=== PATIENT | female | born 1945 | race Caucasian/White ===

== ENCOUNTER → 2020-07-06 14:53 | Outpatient (CLI) | payer OTHER, SELFPAY ==
--- NOTE | ~2020-07-06 | XR_ITS ---
EXAMINATION: XR lumbar spine min 4V DATE: 07/06/2020 15:25 INDICATION: Low back pain. Lumbar radiculitis. Left leg pain. TECHNIQUE: 5 views of lumbar spine were obtained. COMPARISON: None. FINDINGS: Bone alignment is normal. Vertebral body heights are normal. There is mildly decreased disc height at T12-L1, moderately decreased disc height at L2-L3, and mildly decreased disc height from L 3-L4 through L5-S1. There are endplate osteophytes at all levels. There is multilevel severe facet kj int osteoarthritis. IMPRESSION: 1. Moderate lumbar spondylosis. Reviewed, dictated and finalized at location B.
== END ==
DX: M47.26 Other spondylosis with radiculopathy, lumbar region (principal)
CPT/HCPCS: 72110

== ENCOUNTER 2020-08-28 19:20 | Emergency (ER) | payer OTHER, SELFPAY ==
--- NOTE | 2020-08-28 20:21 | PC.NURSE ---
Pt decided to not be seen at this time due to not having any Covid symptoms.
== END 2020-08-28 20:21 | disposition left against medical advice (07) ==
PROVIDERS: Emergency Provider Emergency Medicine; PCP Internal Medicine
DX: Z53.21 Procedure and treatment not carried out due to patient leaving prior to being seen by health care provider (principal)
CPT/HCPCS: 99199

== ENCOUNTER 2021-05-05 12:49 | Emergency (ER) | payer OTHER, MEDICARE, SELFPAY ==
[2021-05-05 13:02] VITALS: BP 158/103; PULSE 90; RESP 16; TEMP 36.7; O2SAT 99
--- NOTE | 2021-05-05 13:22 | ED.URI ---
HPI - URI/Sore Throat General Chief Complaint: Upper Respiratory Infection Stated Complaint: URI Time Seen by Provider: 05/05/21 13:10 Source: patient and RN notes reviewed Mode of arrival: ambulatory Limitations: no limitations History of Present Illness HPI Narrative: Patient presents today complaining of rhinorrhea, nasal congestion and pressure, cough, feeling feverish , and eye itching. Symptoms began yesterday. Denies fever, chills, body aches, shortness of breath. No history of asthma or COPD. She took 1 dose of Zyrtec without relief. 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 MD elicited complaint: cough, rhinorrhea, nasal congestion and sinus pain Related Data Home Medications Medication Instructions Recorded Confirmed meloxicam 15 mg PO DAILY 05/05/21 05/05/21 Allergies Allergy/AdvReac Type Severity Reaction Status Date / Time NKDA Allergy Unknown Other Uncoded 05/05/21 13:09 Review of Systems Review of Systems: CONSTITUTIONAL: Denies body aches, chills, or sweats.+ Feverish EYES: Denies visual changes, redness, or discharge.+ Eye itching ENT: Denies sore throat, or otalgia.+ Rhinorrhea, congestion, sinus pressure CARDIOVASCULAR: Denies chest pain, palpitations, or edema. RESPIRATORY: Denies dyspnea.+ Cough GASTROINTESTINAL: Denies abdominal pain, nausea, vomiting, or diarrhea. GENITOURINARY: Denies dysuria or hematuria. SKIN: Denies rash, itching, or wounds. MUSCULOSKELETAL: Denies back pain, joint pain, or myalgia. NEUROLOGIC: Denies headache, numbness, tingling, or weakness. PSYCH: Denies depression or anxiety. Exam Narrative: GENERAL: Well-appearing, well-nourished, and in no acute distress. HEAD: Normocephalic, atraumatic. EYES: EOMI. No redness or drainage. Conjunctivae normal. ENT: Mucous membranes pink and moist. Nares clear. + rhinorrhea. TMs normal bilaterally. Throat normal with moderate amount of white postnasal drainage. Bilateral nasal turbinates are slightly erythematous and edematous with clear drainage. Uvula midline. NECK: Normal AROM. Supple. No lymphadenopathy. CHEST: No respiratory distress. Clear to auscultation. HEART: Regular rate and rhythm. No murmur appreciated. Normal peripheral pulses. EXTREMITIES: Normal range of motion. No edema. SKIN: Warm, dry, no rash. Capillary refill normal. Normal skin turgor. NEURO: No focal deficits. Alert and oriented x3. Gait steady. PSYCH: Normal affect. No signs of depression or anxiety. Course Course Level of Care: Express Care Visit Vital Signs Vital signs: Vital Signs Temperature 98.1 F 05/05/21 13:02 Pulse Rate 90 05/05/21 13:02 Respiratory Rate 16 05/05/21 13:02 Blood Pressure 158/103 H 05/05/21 13:02 Pulse Oximetry 99 05/05/21 13:02 Temperature 98.1 F 05/05/21 13:02 Pulse Rate 90 05/05/21 13:02 Respiratory Rate 16 05/05/21 13:02 Blood Pressure 158/103 H 05/05/21 13:02 Pulse Oximetry 99 05/05/21 13:02 Reviewed. Pt has been instructed to follow up with her PCP regarding her elevated blood pressure today. MDM - URI/Sore Throat Differential Diagnosis Differential diagnosis: Likely upper respiratory infection, sinusitis and viral infection Critical Care Time Critical Care Time Critical Care Time: No Discharge Plan Discharge Clinical Impression: Upper respiratory infection Qualifiers: URI type: unspecified URI Qualified Code(s): J06.9 - Acute upper respiratory infection, unspecified Patient Disposition: Home, Self-Care Condition: Stable Instructions: Upper Respiratory Infection (DC) Additional Instructions: Your symptoms are likely due to a viral illness, which is not treated with antibiotics. Virus symptoms can last for up to 10-14 days. Take Tylenol or ibuprofen for pain or fever, if able. Consider a decongestant such as Sudafed or Coricidin HBP, or combination medication such as DayQuil. Rest and stay hydrated. Follow up with your PCP in 7
== END 2021-05-05 13:35 | disposition home or self-care (01) ==
PROVIDERS: Emergency Provider Nurse Practitioner; PCP Internal Medicine
DX: J06.9 Acute upper respiratory infection, unspecified (principal)
CPT/HCPCS: 99211; G0463

== ENCOUNTER 2021-05-23 08:35 | Outpatient (CLI) | payer OTHER, MEDICARE, SELFPAY ==
--- NOTE | ~2021-05-23 | MM_ITS ---
EXAMINATION: MM screening [facility] BI w piero HISTORY: Screening mammogram TECHNIQUE: Craniocaudal and mediolateral oblique 3-D tomosynthesis images were obtained and synthetic 2-D images were generated. CAD analysis was submitted and interpreted. COMPARISON: 07/07/2018, 08/21/2011 BREAST PARENCHYMAL COMPOSITION: There are scattered areas of fibroglandular density. FINDINGS: There is no suspicious mass, calcification, or architectural distortion to suggest malignan cy in either breast. There has been no suspicious interval change. IMPRESSION: 1. No mammographic evidence of malignancy. 2. Recommend routine screening mammography in one year. BI-RADS Category 1: Negative Reviewed, dictated and finalized at location A.
== END 2021-05-23 08:36 | disposition home or self-care (01) ==
PROVIDERS: PCP Internal Medicine; Visit Provider Internal Medicine
DX: Z12.31 Encounter for screening mammogram for malignant neoplasm of breast (principal)
CPT/HCPCS: 77063; 77067

== ENCOUNTER 2023-05-26 13:24 | Outpatient (CLI) | payer MEDICARE, SELFPAY ==
--- NOTE | ~2023-05-26 | XR_ITS ---
XR lumbar spine 2-3V DATE: 05/26/2023 13:50 INDICATION: Back pain TECHNIQUE: AP, lateral, coned lateral lumbosacral views COMPARISON: 07/06/2020 lumbar spine is not available from the archive due to PACS issues at this time. FINDINGS: There is diffuse osteopenia. Included lower thoracic and lumbar pedicles are intact. No fracture or bone destruction is evident. The lumbar and included lower thoracic pedicles are intac t. There is multilevel degenerative disc disease, moderate at L1-2, L2-3, L3-4, mild at L4-5 and L5-S1. There is degenerative change at the apophyseal joints of the mid and lower lumbar spine, with minimal associated anterolisthesis at L3-4. The sacroiliac joints are intact. IMPRESSION: Moderate lumbar spondylosis Osteopenia Reviewed, dictated and finalized at location B.
--- NOTE | ~2023-05-26 | XR_ITS ---
XR thoracic spine 3V DATE: 05/26/2023 13:50 INDICATION: Back pain TECHNIQUE: AP, lateral, swimmer views COMPARISON: None FINDINGS: Osteopenia. No fracture or dislocation or bone destruction. The thoracic pedicles are intact. There is mild to mo derate degenerative spurring of the thoracic spine. There is mild thoracolumbar dextroscoliosis. No paraspinal soft tissue thickening. IMPRESSION: Thoracolumbar dextroscoliosis Osteopenia Mild to moderate spurring Reviewed, dictated and finalized at location B.
== END 2023-05-26 13:25 ==
LOC: MICIMG 13:27
PROVIDERS: PCP Internal Medicine; Visit Provider Internal Medicine
DX: M47.896 Other spondylosis, lumbar region (principal); M85.88 Other specified disorders of bone density and structure, other site
CPT/HCPCS: 72072; 72100

== ENCOUNTER 2024-01-29 10:13 | Outpatient (CLI) | payer MEDICARE, SELFPAY ==
--- NOTE | ~2024-01-29 | MMUS_ITS ---
EXAMINATION: MM diagnostic [facility] BI w piero, US breast RT limited HISTORY: Right lateral breast pain TECHNIQUE: Additional 3-D tomosynthesis images of the right breast were performed and synthetic 2-D i mages were generated. CAD analysis was submitted and interpreted. High resolution Limited right breas t ultrasound was performed. COMPARISON: Comparison to multiple prior studies sequentially, with oldest reviewed study dated 07/07. BREAST PARENCHYMAL COMPOSITION: Not dense: There are scattered areas of fibroglandular density. FINDINGS: MAMMOGRAPHIC FINDINGS: There are no suspicious masses, calcifications or architectural distortion in either breast to sugges t malignancy. The breasts are stable. ULTRASOUND: Limited right breast ultrasound: At 10:00, 8 cm from the nipple there is an oval hypoechoic 4 mm mass with parallel orientation, no posterior features and no internal vascularity. There is a horizontall y oriented echogenic line internally. No other masses. IMPRESSION: 1. Probable benign right breast mass at 10:00, 8 cm from the nipple measuring 4 mm. 2. Recommend 6 month follow-up Limited right breast ultrasound BI-RADS category 3, probably benign findings. Reviewed, dictated and finalized at location B. IC RELATIONS INTERN IMPRESSION: 1. Probable benign right breast mass at 10:00, 8 cm from the nipple measuring 4 mm. 2. Recommend 6 month follow-up Limited right breast ultrasound BI-RADS category 3, probably benign findings.
== END 2024-01-29 10:14 | disposition home or self-care (01) ==
PROVIDERS: PCP Internal Medicine; Visit Provider Internal Medicine
DX: N64.4 Mastodynia (principal); R92.8 Other abnormal and inconclusive findings on diagnostic imaging of breast
CPT/HCPCS: 76642; 77062; 77066; G0279

== ENCOUNTER 2024-04-13 12:00 | Outpatient (CLI) | payer MEDICARE, SELFPAY ==
--- NOTE | ~2024-04-13 | XR_ITS ---
EXAMINATION: XR chest 2V DATE: 04/13/2024 12:28 INDICATION: Dyspnea TECHNIQUE: PA and lateral views of the chest were obtained. COMPARISON: None FINDINGS: Mild linear discoid atelectasis at the left lung base. Mild eventration along the anterior right taj diaphragm. No other airspace opacities, pulmonary edema, pleural effusion or pneumothorax. The cardio mediastinal silhouette is normal. Moderate thoracic spondylosis. IMPRESSION: 1. Mild left basilar discoid atelectasis. No other acute cardiopulmonary disease. Reviewed, dictated and finalized at location A. 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 Mild left basilar discoid atelectasis. No other acute cardiopulmonary diseas e.
== END 2024-04-13 12:01 | disposition home or self-care (01) ==
PROVIDERS: PCP Internal Medicine; Visit Provider Internal Medicine
DX: R06.00 Dyspnea, unspecified (principal); J98.11 Atelectasis
CPT/HCPCS: 71046

== ENCOUNTER 2024-04-22 14:59 | Outpatient (CLI) | payer MEDICARE, SELFPAY | END 2024-04-22 15:00 | disposition home or self-care (01) | PROVIDERS: PCP Internal Medicine; Visit Provider Internal Medicine | DX: M85.89 Other specified disorders of bone density and structure, multiple sites (principal); Z13.820 Encounter for screening for osteoporosis | CPT/HCPCS: 77080 ==

== ENCOUNTER 2024-08-02 10:16 | Outpatient (CLI) | payer MEDICARE, SELFPAY ==
--- NOTE | ~2024-08-02 | US_ITS ---
US breast RT limited 08/02/2024 10:41 Indication: Follow-up right breast mass Procedure: Limited ultrasound of the right breast Comparison: 01/29/2024 Findings: At 10:00, 8 cm from the nipple there is an oval hypoechoic 4 x 3 x 3 mm mass with internal septations, no internal vascularity and no significant posterior features. This mass is stable compar ed with prior study. Impression: 1: Stable likely benign right breast mass at 10:00, 8 cm from the nipple measuring 4 mm. BI-RADS CATEGORY 3-PROBABLY BENIGN FINDING RECOMMENDATION: Six-month follow-up diagnostic bilateral mammogram and Limited right breast ultrasoun d recommended. Reviewed, dictated and finalized at location B. Impression: 1: Stable likely benign right breast mass at 10:00, 8 cm from the nipple measur ing 4 mm. BI-RADS CATEGORY 3-PROBABLY BENIGN FINDING RECOMMENDATION: Six-month follow-up diagnostic bilateral mammogram and Limited right breast ultrasound recommended.
--- OUTSIDE RECORDS SUMMARY | 2024-08-02 11:28 | XMS_ITS | Clinical Summary ---
Author Organization [facility] Address [address] [place] [address] Care Team Providers Care Roll Operator Name Role Phone Jhony Tang MD Unavailable Gustavo Hester MD Primary Care Provider [phone] Source Comments [facility],non-owned Affiliates and Associated Physician Practices is amultiple site organization consisting of ambulatory clinics and hospital sitesin [place], [place], [place] and [place]. This disclosure is being madepursuant to the Care Everywhere program and may not contain all information available regarding this patient. Last updated 17.[facility] Allergies No known active allergies Medications * Be aware that medications may not be up to date on this document. Alwaysverify current medications with the patient. vitamin D, ergocalciferol, (DRISDOL) 24583 UNITS capsule 8 Active benzonatate (TESSALON) 100 MG capsule benzonatate 100 mg capsule Active naproxen (NAPROSYN) 375 MG tablet naproxen 375 mg tablet TAKE ONE TABLET BY MOUTH TWICE DAILY Active meloxicam (MOBIC) 15 MG tabletIndicatio ns:Presence of left artificial knee joint,Chronic pain of left knee Take 1 tablet by mouth once daily 30 tablet 5 2 Active Active Problems Problem Noted Date Diagnosed Date Status post left knee replacement 07/17/2017 Primary osteoarthritis of right knee 07/15/2017 Immunizations Immunization Administration Dates Next Due PNEUMOCOCCAL PPSV23 10/10/2013 Social History Tobacco Use Types Packs/Day Years Used Date Smoking Tobacco: Never Smokeless Tobacco: Never Alcohol Use Standard Drinks/Week Comments No 0 (1 standard drink = 0.6 oz pur e alcohol) Comments No Sex and Gender Information Value Date Recorded Sex Assigned at Not on file Legal Sex Female 11:11 AM CDT Gender Identity Not on file Sexual Orientation Not on file Last Filed Vital Signs Vital Sign Reading Time Taken Comments Blood Pressure 196/95 06/27/2020 10:44 AM CDT Pulse 72 06/27/2020 10:44 AM CDT Temperature 36.8 C (98.3 F) 10/10/2013 7:19 AM CDT Respiratory Rate 16 10/10/2013 7:19 AM CDT Oxygen Saturation 94% 10/10/2013 7:19 AM CDT Inhaled Oxygen Concentration - - Weight 72.6 kg (160 lb) 06/27/2020 10:44 AM CDT Height 142.2 cm (4' 8) 06/27/2020 10:44 AM CDT Body Mass Index 35.87 06/27/2020 10:44 AM CDT Plan of Treatment Health Maintenance Due Date Last Done Comments BONE DENSITY TESTING 1945 MEDICARE AWV 12 MONTHS 1945 HEPATITIS C SCREENING 09/15/1965 DTAP/TDAP/TD VACCINES (1 - Tdap) 09/19/1966 ZOSTER VACCINE (1 of 2) 09/19/1997 PNEUMOCOCCAL VACCINE 50+ (2 of 2 - PCV) 10/10/2014 10/10/2013 Respiratory Syncytial Virus (RSV) Vaccine Pt: or over 60 yrs (1 - 1-dose 75+ series) 09/19/2022 COVID-19 VACCINE ( - 2023-2 5 season) 2023 DEPRESSION SCREENING 02/25/2024 INFLUENZA VACCINE (Season Ended) 2024 HEPATITIS B VACCINE Aged Out No longe r eligible based on patient's age to complete this topic HIB VACCINE Aged Out No longer eligi ble based on patient's age to complete this topic HPV VACCINE Aged Out No longer eligi ble based on patient's age to complete this topic MENINGOCOCCAL (Group B) VACC INE SHARED DECISION-MAKING Aged Out No longer eligibl e based on patient's age to complete this topic MENINGOCOCCAL GROUPS A/C/Y/W VACCINE Aged Out No longer eligible b ased on patient's age to complete this topic Medical Devices Implanted Type Area Transition Mgr Rn Device Identifier Shelf Expiration Date Model / Serial / Lot Frankie Bone [place] Hv Implanted:Qty: 1 on 10/07/2013 by Jhony Tang MD at [facility] Left: [employer] 06/24/2015 [id number] / / [id number] Ty Tibial I Beam Fix Bar 67mm Implanted:Qty: 1 on 10/07/2013 by Jhony Tang MD at [facility] Left: [employer] 07/24/2023 [id number] / / [id number] Butn Pat Arcom Wire Polyeth Xsm 28 X 8 Implanted:Qty: 1 on 10/07/2013 by Jhony Tang MD at [facility] Left: [employer] 07/23/2018 [id number] / / [id number] Ins Kn Vangurd Fem Cocr L-Intlok 60.0mm Implanted:Qty: 1 on 10/07/2013 by Jhony Tang MD at [facility] Left: [employer] 07/24/2023 [id number] / / [id number] Vangrd Ant Stblzd Brg 12mm X 67mm Implanted:Qty: 1 on 10/07/2013 by Jhony Tang MD at [facility] Left: [employer] 05/23/2018 [id number] / / [id number] Insurance MEDICARE Member Subscriber Plan / Payer (Ef fective 2013-Present) Name:Piedad Jane Member ID:[id number] Relation to Subscriber:Self Name:Piedad Jane Subscriber ID:[id number] Payer ID:Not on file Group ID:Not on file Type:Medicare Address: [place] [id number] [employer] Advance Directives * Full Code (Latest Code Status on File) Date Activated Date Inactivated Comments 10/07/2013 2:57 PM 10/10/2013 1:20 PM Care Teams Roll Operator Relationship Specialty Start Date End Date Gustavo Hester MD [facility] [address] [place] [id number] PCP - General Internal Medicine 08/31/13 [place] [id number] [address] [place] [address] Orthopedic Surgery 08/31/13
--- OUTSIDE RECORDS SUMMARY | 2024-08-02 11:28 | XMS_ITS | Data Portability ---
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 Differential diagnosis always includes the possibility of low-grade occult infection. My suspicion for infection is low in this case is usually there would be a more prominent effusion that could be palpated. We will obtain a sedimentation rate and a C-reactive protein and if either is abnormal will aspirate the knee for culture and cell count analysis. This was explained to the patient. 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 This puts additional stress on the extensor mechanism. She has been using a cane in the right hand instinctively min I think this is to compensate impart for this significant weakness in her left hip abductor mechanism which is likely due to chronic degenerative tearing. She also has some weakness in abduction of the right hip but not to the same degree. I would recommend that she work on weight loss. She asked about some of the new medications which are tolerated to help with weight loss and she is going to discuss that with Dr. Hester. I would recommend a course of physical therapy and see if we can strengthen her weak abductor musculature in both hips. She will continue using a cane in the right hand. I will see her back in 1 month to assess her progress. If her blood work is abnormal we will invite her in for aspiration of the left knee to rule out infection. To try to address the inflammation, I have discussed her the option of trying meloxicam 15 mg daily. I explained the possible side effects. She denies any history of peptic ulcer disease kidney problems or liver problems. I have given her instructions she described possible side effects of anti-inflammator y medication use. I warned her that she must and take ibuprofen or Aleve in addition to the meloxicam. 45 minutes were spent in total care this patient more than half the time spent in [id number] care. Addendum: 09/07/2022: C-reactive protein was 0.4 and sedimentation rate was 8 both within normal limits arguing against infection. I called the patient this morning And let her know [email or web address] Not available 09/07/2022 09:31:38 Plan of Treatment Reminders Order Date Submit Date Provider Last Modified By Organization Details Last Modified Time Details Appointments None recorded. Lab CBC w/ auto diff 2024 025 [email or web address] [facility], [address] [place], [address], 5 17:21:52 CMP, serum or plasma 2024 025 [facility], [address] [place], [address], 5 17:21:52 T4, free, serum 2024 025 [email or web address] [facility], [address] [place], [address], 5 17:21:52 TSH, serum or plasma 2024 025 [email or web address] [facility], [address] [place], [address], 5 17:21:53 vitamin D, 25-hydroxy, total, serum 2024 025 [email or web address] [facility], [address] [place], [address], 5 17:21:53 vitamin D, 25-hydroxy, total, serum 2023 024 [facility], [address] [place], [address], 4 08:35:18 HbA1c (hemoglobin A1c), blood 2023 024 [facility], [address] [place], [address], 4 08:35:19 TSH, serum or plasma 2023 024 [facility], [address] [place], [address], 4 08:35:17 T4, free, serum 2023 024 [facility], [address] [place], [address], 4 08:35:16 CBC w/ auto diff 2023 024 [facility], [address] [place], [address], 4 08:35:15 lipid panel, serum 2023 024 [facility], [address] [place], [address], 4 08:35:13 CMP, serum or plasma 2023 024 [facility], [address] [place], [address], 4 08:35:14 Referral None recorded. Procedures None recorded. Surgeries None recorded. Imaging XR, knee 2022 023 [email or web address] [facility], [address] [facility], [place], [address], 3 12:30:08 XR, hip + pelvis, unilateral 2022 023 [facility], [facility] [facility], [place], [address], 3 13:41:27 Medication Orders benzonatate 200 mg capsule 2024 025 [id number], [address] [facility], [place], [address], 5 11:53:40 Patient TargetsNo targets recorded. Patient Instructions Encounter Date Encounter Id Patient Instructions Last Modified By Organization Details Last Modified Time 01/22/2023 [id number] Will continue on current medications of meloxicam 15 mg once daily instructed take Tylenol of East 500 mg two q.8 hours for pain. Will obtain x-rays of the lumbar thoracic spine. Continue on current Rx pending those results. Is in need of Cologuard test Portions of the record may have been created with voice recognition software. Occasional wrong-word or s ound-a-like substitutions may have occurred due to the inherent limitations of voice recognition software. Read the chart carefully and recognize, using context, where substitutions have occurred. Cologuard x-rays of the thoracic and lumbar spine Next Appt: 6 Months Approximate Date: 07/21/2023 [email or web address] Not available 01/22/2023 16:41:41 05/21/2023 [id number] Follow-up for degenerative joint disease as well as obesity class three. Both clinically stable. Will continue on current Rx and follow-up in six months. Will check blood work consisting of CBC, CMP, lipid, thyroid, vitamin-D level. Also needs a mammogram and Cologuard test. Mammogram Cologuard Next Appt: 6 Months Approximate Date: 11/17/2023 Portions of the record may have been created with voice recognition software. Occasional wrong-word or s ound-a-like substitutions may have occurred due to the inherent limitations of voice recognition software. Read the chart carefully and recognize, using context, where substitutions have occurred. [email or web address] Not available 05/21/2023 15:21:14 11/19/2023 [id number] dementia rating scale-2* [email or web address] Not available 11/19/2023 15:34:21 alcohol misuse* [email or web address] Not available 11/19/2023 15:34:21 depression screening* [email or web address] Not available 11/19/2023 15:34:21 Timed Up and Go test (TUG)* [email or web address] Not available 11/19/2023 15:34:21 multi-dimensiona l health assessment questionnaire* Not available 11/19/2023 15:34:21 Personalized a lt Plan and Screening Recommendations Advance Directives - Do you have one? No You have indicated that you are capable of preparing your advance care directive I recommend consulting with an Vp Strategic Planning, family member, or friend to assist you. not interested at this time Advance Directives - Do we have your advance directive on file in your health record? Primary Prevention/Interven tion (prevents or decreases the chance of common diseases from occurring) Smoking Risk: Non Smoker Alcohol Misuse Screening: Negative Weight: Overweight try to lose 10% of your body weight Physical activity: Need more exercise/physical activity Nutrition: Average Refer to attached handout Heart-Healthy Diet: After Your Visit Refer to attached handout DASH Diet: After Your Visit Recommend consultation with a diamond die driller Eat heart healthy diet Fall Risk (screened today): Intermediate Recommend regular use of cane or walker Vaccines Pneumococcal: No further needed Influenza: Your next one in the fall of this year Chronic Disease Risks Stroke: Low Risk I have no recommendations Heart Attack: Intermediate Risk I have no recommendations Clogging of the Arteries: Low risk I have no recommendations Diabetes: Low Risk I have no recommendations Secondary Prevention/Interven tion (detects treatable diseases before they may cause symptoms, disability, or ) Breast Cancer Screening with mammogram: Recommended today Cervical/Uterine/Ov prakash Cancer Screening: No screening necessary Osteoporosis Screening: Recommended today Date Screening Last Performed: Colon Cancer Screening: Cologuard (DNA stool test) Recommended Date Screening Last Performed: Eye Disease Screening: Ordered Recommended today Recommended today, but you have declined No Eye exam necessary Your next exam in: goes every 2 yrs Dementia Risk: Low I have no recommendations Depression Screening: Negative Recommend additional evaluation and/or treatment as noted above Recommend follow appointment to further evaluate Recommend Behavioral Health referral Active diagnosis, Continue current treatment plan I have no recommendations Not available 11/19/2023 15:20:58 Medicare wellnes s evaluation risk assessment stable. Follow-up for history of osteoporosis as well as degenerative arthritis and obesity class three. All clinically stable. Had blood work performed back in May which looked excellent. See no reason for further evaluation at this time. Will continue on current medications. Does need a bone density scan, mammogram and colonoscopy. Follow-up in six months. Additional Orders - Directives - Recommendations 1. DEXA Scan 2. Mammogram 2. Colonoscopy 3. Mammogram Follow Up: 6 Months Approximate Date: 05/17/2024 Portions of the record may have been created with voice recognition software. Occasional wrong-word or s ound-a-like substitutions may have occurred due to the inherent limitations of voice recognition software. Read the chart carefully and recognize, using context, where substitutions have occurred. [email or web address] Not available 11/19/2023 15:33:57 04/07/2024 [id number] Follow-up chroni c cough, chronic back pain secondary to degenerative joint disease. Osteoarthritis of the spine. History of some very mild osteopenia. Will check a bone density scan as well as a Cologuard test. Check a CBC, CMP thyroid and vitamin-D level Will continue on current Rx follow-up in six months Additional Orders - Directives - Recommendations 1. bone density scan 2. Cologuard 3 get copy of the mammogram done up at [facility] Get the bone density scan done up at [facility] Follow Up: 6 Months Approximate Date: 10/04/2024 Portions of record are template driven. When necessary additional context will be provided. Additionally some portions have been created with voice recognition software. Occasional wrong-word or s ound-a-like substitutions may have occurred due to the inherent limitations of voice recognition software. Read the chart carefully and recognize, using context, where substitutions may have occurred. Created: Chao Hester M.D. 04.07.2024 10:53 AM Not available 04/07/2024 11:53:14 Reason for Referral None Reported. Results Created Date Observation Date Name Description Value Unit Range Abnormal Flag Note LastModifiedBy Organization Detail LastModifiedTime 04/07/1904/07/2024 COLOG UARD cologuard result Cancel led - Duplic ate Order not applic able Not Available [facility] (Cologuard Orders Only) [address], [place], [address], 04/07/2024 17:13:23 11/24/19 24 11/24/2023 COLOG UARD cologuard result Cancel led - Duplic ate Order not applic able Not Available [facility] (Cologuard Orders Only) [address], [place], [address], 11/24/2023 11:22:06 05/21/19 24 05/21/2023 COLOG UARD cologuard result Cancel led - Duplic ate Order not applic able Not Available [facility] (Cologuard Orders Only) [address], [place], [address], 05/21/2023 15:43:56 09/04/19 23 09/03/2022 SEDIM ENTAT ION RATE erythrocyte sedimentatio n rate 8 mm/HR 0-20 Not Available [facility] (Lab) [address] [place], [address], 09/03/2022 12:11:43 09/04/19 23 09/03/2022 C REACT TEAGAN PROTE IN,UL TRA SENS C-reactive protein 0.43 mg/dL 0.0-0. 5 Not Available [facility] (Lab) [address] [place], [address], 09/03/2022 13:13:11 05/26/19 24 05/27/2023 LIPID PANEL , STAND VINCE cholesterol, total 206 mg/dL <200 high Not Available [facility] [id number] [place] [address], [address], 05/27/2023 08:35:13 05/26/19 24 05/27/2023 LIPID PANEL , STAND VINCE HDL cholesterol 63 mg/dL > or = 50 normal Not Available [facility] [id number] [place], [place] [address] [place], [address], 05/27/2023 08:35:13 05/26/19 24 05/27/2023 LIPID PANEL , STAND VINCE triglyceride s 97 mg/dL <150 normal Not Available [facility] [address] [place], [address], 05/27/2023 08:35:13 05/26/19 24 05/27/2023 LIPID PANEL , STAND VINCE LDL-choleste rol 123 mg/dL _(beba c) high Refer ence range : <100 Saundra able range <100 mg/dL for prima ry preve ntion ; <70 mg/dL for patie nts with CHD or diabe tic patie nts with > or = 2 CHD risk facto rs. LDL-C is now calcu lated using the Taniya n-Hop kins calcu oswaldo n, which is a valid ated novel amyo d godwini uri dae r accur acy than the Fried halima equat ion in the estim ation of LDL-C . Taniya baum SS et al. RED. 2013; 310(1 9): 2061- 2068 (http ://ed ucati on.Qu estProvident Link. com/f aq/FA Q164) Not Available [facility] [id number] [place] [address], [place], [address], 05/27/2023 08:35:13 05/26/19 24 05/27/2023 LIPID PANEL , STAND VINCE chol/HDLC ratio 3.3 (calc ) <5.0 normal Not Available [facility] [address] [place], [address], 05/27/2023 08:35:13 05/26/19 24 05/27/2023 LIPID PANEL , STAND VINCE non HDL cholesterol 143 mg/dL _(beba c) <130 high For patie nts with diabe vikram plus 1 major ASCVD risk facto r, treat ing to a non-H DL-C goal of <100 mg/dL (LDL- C of <70 mg/dL ) is consi dered a thera peuti c optio n. Not Available [address], [address], 05/27/2023 08:35:13 05/26/19 24 05/27/2023 COMPR EHENS TEAGAN METAB OLIC PANEL glucose 88 mg/dL 65-99 normal Fasti ng refer ence inter latia Not Available [address], [address], 05/27/2023 08:35:14 05/26/19 24 05/27/2023 COMPR EHENS TEAGAN METAB OLIC PANEL urea nitrogen (BUN) 14 mg/dL 7-25 normal Not Available [address], [address], 05/27/2023 08:35:14 05/26/19 24 05/27/2023 COMPR EHENS TEAGAN METAB OLIC PANEL creatinine 0.71 mg/dL 0.60-1 .00 normal Not Available [address], [address], 05/27/2023 08:35:14 05/26/19 24 05/27/2023 COMPR EHENS TEAGAN METAB OLIC PANEL eGFR 89 mL/mi n/1.7 3m2 > or = 60 normal Not Available [address], [address], 05/27/2023 08:35:14 05/26/19 24 05/27/2023 COMPR EHENS TEAGAN METAB OLIC PANEL BUN/creatini ne ratio SEE NOTE: (calc ) 6-22 Not Repor leonor: BUN and Creat inine are withi n refer ence range . Not Available [address], [address], 05/27/2023 08:35:14 05/26/19 24 05/27/2023 COMPR EHENS TEAGAN METAB OLIC PANEL sodium 140 mmol/ L 135-14 6 normal Not Available [address], [address], 05/27/2023 08:35:14 05/26/19 24 05/27/2023 COMPR EHENS TEAGAN METAB OLIC PANEL potassium 4.3 mmol/ L 3.5-5. 3 normal Not Available [address], [address], 05/27/2023 08:35:14 05/26/19 24 05/27/2023 COMPR EHENS TEAGAN METAB OLIC PANEL chloride 106 mmol/ L 98-110 normal Not Available [address], [address], 05/27/2023 08:35:14 05/26/19 24 05/27/2023 COMPR EHENS TEAGAN METAB OLIC PANEL carbon dioxide 28 mmol/ L 20-32 normal Not Available [address], [address], 05/27/2023 08:35:14 05/26/19 24 05/27/2023 COMPR EHENS TEAGAN METAB OLIC PANEL calcium 9.1 mg/dL 8.6-10 .4 normal Not Available [address], [address], 05/27/2023 08:35:14 05/26/19 24 05/27/2023 COMPR EHENS TEAGAN METAB OLIC PANEL protein, total 6.8 g/dL 6.1-8. 1 normal Not Available [address], [address], 05/27/2023 08:35:14 05/26/19 24 05/27/2023 COMPR EHENS TEAGAN METAB OLIC PANEL albumin 4.2 g/dL 3.6-5. 1 normal Not Available [address], [address], 05/27/2023 08:35:14 05/26/19 24 05/27/2023 COMPR EHENS TEAGAN METAB OLIC PANEL globulin 2.6 g/dL_ (calc ) 1.9-3. 7 normal Not Available [address], [address], 05/27/2023 08:35:14 05/26/19 24 05/27/2023 COMPR EHENS TEAGAN METAB OLIC PANEL albumin/glob ulin ratio 1.6 (calc ) 1.0-2. 5 normal Not Available [address], [address], 05/27/2023 08:35:14 05/26/19 24 05/27/2023 COMPR EHENS TEAGAN METAB OLIC PANEL bilirubin, total 0.7 mg/dL 0.2-1. 2 normal Not Available [address], [address], 05/27/2023 08:35:14 05/26/19 24 05/27/2023 COMPR EHENS TEAGAN METAB OLIC PANEL alkaline phosphatase 64 U/L 37-153 normal Not Available [address], [address], 05/27/2023 08:35:14 05/26/19 24 05/27/2023 COMPR EHENS TEAGAN METAB OLIC PANEL AST 17 U/L 10-35 normal Not Available [address], [address], 05/27/2023 08:35:14 05/26/19 24 05/27/2023 COMPR EHENS TEAGAN METAB OLIC PANEL ALT 16 U/L 6-29 normal Not Available [address], [address], 05/27/2023 08:35:14 05/26/19 24 05/27/2023 CBC (INCL UDES DIFF/ PLT) white blood cell count 6.8 thous and/u L 3.8-10 .8 normal Not Available [address] [place], [address], 05/27/2023 08:35:15 05/26/19 24 05/27/2023 CBC (INCL UDES DIFF/ PLT) red blood cell count 4.65 kadie on/uL 3.80-5 .10 normal Not Available [facility] [address], [address], 05/27/2023 08:35:15 05/26/19 24 05/27/2023 CBC (INCL UDES DIFF/ PLT) hemoglobin 14.2 g/dL 11.7-1 5.5 normal Not Available [facility] [address], [address], 05/27/2023 08:35:15 05/26/19 24 05/27/2023 CBC (INCL UDES DIFF/ PLT) hematocrit 42.4 % 35.0-4 5.0 normal Not Available [address], [address], 05/27/2023 08:35:15 05/26/19 24 05/27/2023 CBC (INCL UDES DIFF/ PLT) MCV 91.2 fL 80.0-1 00.0 normal Not Available [address], [address], 05/27/2023 08:35:15 05/26/19 24 05/27/2023 CBC (INCL UDES DIFF/ PLT) MCH 30.5 pg 27.0-3 3.0 normal Not Available [facility] [address], [address], 05/27/2023 08:35:15 05/26/19 24 05/27/2023 CBC (INCL UDES DIFF/ PLT) MCHC 33.5 g/dL 32.0-3 6.0 normal Not Available [facility] [address], [address], 05/27/2023 08:35:15 05/26/19 24 05/27/2023 CBC (INCL UDES DIFF/ PLT) RDW 13.1 % 11.0-1 5.0 normal Not Available [address], [address], 05/27/2023 08:35:15 05/26/19 24 05/27/2023 CBC (INCL UDES DIFF/ PLT) platelet count 287 thous and/u L 140-40 0 normal Not Available [address], [address], 05/27/2023 08:35:15 05/26/19 24 05/27/2023 CBC (INCL UDES DIFF/ PLT) MPV 11.0 fL 7.5-12 .5 normal Not Available [address], [address], 05/27/2023 08:35:15 05/26/19 24 05/27/2023 CBC (INCL UDES DIFF/ PLT) absolute neutrophils 3876 cells /uL 1500-7 800 normal Not Available [address], [address], 05/27/2023 08:35:15 05/26/19 24 05/27/2023 CBC (INCL UDES DIFF/ PLT) absolute lymphocytes 2012.8 cells /uL 850-39 00 normal Not Available [address], [address], 05/27/2023 08:35:15 05/26/19 24 05/27/2023 CBC (INCL UDES DIFF/ PLT) absolute monocytes 592 cells /uL 200-95 0 normal Not Available [address], [address], 05/27/2023 08:35:15 05/26/19 24 05/27/2023 CBC (INCL UDES DIFF/ PLT) absolute eosinophils 252 cells /uL 15-500 normal Not Available [facility] [address], [address], 05/27/2023 08:35:15 05/26/19 24 05/27/2023 CBC (INCL UDES DIFF/ PLT) absolute basophils 68 cells /uL 0-200 normal Not Available [facility] [address], [address], 05/27/2023 08:35:15 05/26/19 24 05/27/2023 CBC (INCL UDES DIFF/ PLT) neutrophils 57 % normal Not Available [facility] [address], [address], 05/27/2023 08:35:15 05/26/19 24 05/27/2023 CBC (INCL UDES DIFF/ PLT) lymphocytes 29.6 % normal Not Available [facility] [address], [address], 05/27/2023 08:35:15 05/26/19 24 05/27/2023 CBC (INCL UDES DIFF/ PLT) monocytes 8.7 % normal Not Available [facility] [address], [address], 05/27/2023 08:35:15 05/26/19 24 05/27/2023 CBC (INCL UDES DIFF/ PLT) eosinophils 3.7 % normal Not Available [facility] [address], [address], 05/27/2023 08:35:15 05/26/19 24 05/27/2023 CBC (INCL UDES DIFF/ PLT) basophils 1.0 % normal Not Available [facility] [address], [address], 05/27/2023 08:35:15 05/26/19 24 05/27/2023 T4, FREE T4, free 1.2 NG/dL 0.8-1. 8 normal Not Available [facility] [address], [address], 05/27/2023 08:35:16 05/26/19 24 05/27/2023 TSH TSH 1.29 mIU/L 0.40-4 .50 normal Not Available [address], [address], 05/27/2023 08:35:17 05/26/19 24 05/27/2023 VITAM IN D,25- OH,TO JUVENCIO,I A vitamin D,25-oh,tota l,ia 23 NG/mL 30-100 low Vitam in D Statu s 25-OH Vitam in D: Defic iency : <20 ng/mL Insuf ficie ncy: 20 - 29 ng/mL Optim al: > or = 30 ng/mL For 25-OH Vitam in D testi ng on patie nts on D2-alexis pplem entat ion and patie nts for whom quant itati on of D2 and D3 fract ions is requi red, the [facility] e[facility](TM ) 25-OH VIT D, (D2,D 3), LC/MS /MS is recom hua d: order code 84526 (yoni ents >2yrs ). See Note 1 Note 1 For addit ional infor allyson acosta refer to http: //regina Mccracken stDia gnost ics.c om/fa q/FAQ 199 (This link is being provi ded for infor nohelia naqvi/ krishna gallego purpo ses only. ) Not Available [employer] [address], [address], 05/27/2023 08:35:18 05/26/19 24 05/27/2023 HEMOG LOBIN A1C hemoglobin A1C 5.7 %_of_ total _HGB <5.7 high For someo ne witho ut known diabe vikram, a hemog lobin A1c value betwe en 5.7% and 6.4% is consi stent with predi abete s and shoul d be confi rmed with a follo w-up test. For someo ne with known diabe vikram, a value <7% indic ates that their diabe vikram is well contr olled . A1c targe ts shoul d be indiv idual ized based on durat ion of diabe vikram, age, comor bid condi tions , and other consi derat ions. This assay resul t is consi stent with an incre ased risk of diabe vikram. Curre ntly, no conse nsus exist s tripp grewal use of hemog lobin A1c for diagn osis of diabe vikram for child alaiyah. This test was perfo rmed on the [employer] patricia c503 platf orm. Effec tive , a wagoner e in test platf orms from the [facility] [employer] [facility] to the [employer] patricia c503 may have shift ed HbA1c resul ts nitin red to histo rical resul ts. Based on labor atory valid ation testi ng condu cted at [employer] , the [facility] platf orm relat teagan to the [employer] platf orm had an avera ge incre ase in HbA1c value of < or = 0.3%. This diffe rence is withi n accep leonor varia bilit y estab lishe d by the [employer] hemog lobin Stand ardiz ation Progr am. Note that not all indiv idual s will have had a shift in their resul ts and direc t nitin rison s betwe en histo rical and curre nt resul ts for testi ng condu cted on diffe rent platf orms is not recom hua d. Not Available [facility] [address], [place], [address], 05/27/2023 08:35:19 08/30/19 23 XR, knee No observ ation record ed. [email or web address] [facility] [address], [place], [address], 08/29/2022 11:09:29 08/30/19 23 XR, hip + pelvi s, unila teral No observ ation record ed. [email or web address] [facility] [address], [place], [address], 08/29/2022 11:08:53 08/30/19 23 08/29/2022 XR, hip + pelvi s, unila teral [facility] [address], [place] [address] Patien t Name: YVONNE TUCKER Access ion #: [id number] Sex: F : 1945 Dictat ed By: Marbella galvan Attend ing Physic joanne: , Amari hilario Physic joanne: , Exam Date: 2022 09:31 AM Exam Name: XR HIP/PE LVIS LT 2-3V Admitt ing Diagno sis(es ): CLINIC AL INFORM ATION: Pain. TECHNI QUE: 3 views of the pelvis and left hip, includ ing AP view of the pelvis and AP and crosst able latera l views of the left hip were obtain ed. COMPAR MIKE: No prior studie s. FINDIN GS: No acute fractu re or disloc ation. Modera te joint space narrow ing in both hips with minima l subcho ndral sclero sis. Modera te sclero sis adjace nt to the left sacroi liac joint with associ ated narrow ing. Modera te athero sclero tic calcif icatio n in the left proxim al thigh. Soft tissue s are otherw ise grossl y unrema rkable . IMPRES ISSA: No eviden ce of acute bony abnorm ality. Arthri tic change s as descri bed above. Electr onical ly Signed by: Marbella galvan at 2022 12:39: 11 PM Page 1 [facility] (Imaging) [address], [place], [address], 08/29/2022 16:04:13 05/26/19 24 05/26/2023 XR, thora cic spine , 3 view No observ ation record ed. [email or web address] [facility] [address], [place], [address], 05/26/2023 16:28:42 05/26/19 24 05/26/2023 XR, lumba r spine No observ ation record ed. [email or web address] [facility] (One Call Scheduling) [address] [facility], [place], [address], 06/03/2023 11:29:53 05/26/19 24 05/26/2023 XR, lumba r spine No observ ation record ed. [address], [place], [address], 05/27/2023 07:30:07 05/29/19 24 05/26/2023 XR, thora cic spine , 3 view No observ ation record ed. [address] [facility] [address], [place], [address], 05/30/2023 07:49:07 05/29/19 24 05/26/2023 XR, lumba r spine No observ ation record ed. [address] [facility] [address], [place], [address], 05/30/2023 07:45:48 04/13/19 25 04/13/2024 XR, chest , 2 view No observ ation record ed. [address] [facility] [address], [place], [address], 04/13/2024 14:19:57 04/13/19 25 04/13/2024 XR, chest , 2 view No observ ation record ed. [address] [facility] [address], [place], [address], 04/14/2024 06:45:35 04/23/19 25 04/22/2024 bone densi ty No observ ation record ed. [address], [place], [address], 04/23/2024 15:32:54 08/03/19 25 08/02/2024 , ian ramos No observ ation record ed. [address] [facility] [address], [place], [address], 08/02/2024 11:50:42 Result Notes None recorded. Problems Name Problem SNOMED Code Status Onset Date Resolution Date Notes Provider Name and Address Organization Details Recorded Time Left flank pain 312088987 Active 2021 Not Available [facility] 3 17:21:28 Generalize d osteoarthr itis 946616702 Active Not Available [facility] 3 17:21:28 Pain 89492313 Active Not Available [facility] 3 17:21:28 Osteoarthr itis of knee 537574317 Active Not Available [facility] 3 17:21:28 Screening mammograph y Active 2021 Not Available [facility] 3 17:21:28 Screening for osteoporos is Active 2021 Not Available [facility] 3 17:21:28 Screening for cardiovasc ular system disease Active 2021 Not Available [facility] 3 17:21:28 Finding of body mass index 469789031 Active 2021 Not Available [facility] 3 17:21:28 Vitamin D deficiency 12206820 Active 2017 Not Available [facility] 3 17:21:28 Osteoarthr itis 297622253 Active Not Available [facility] 3 17:21:28 Acute urinary tract infection 787585918 Active 2021 Not Available [facility] 3 17:21:28 Transient hypertensi on 95507800 Active Not Available [facility] 3 17:21:28 Osteoporos is 84113271 Active 2021 Not Available [facility] 3 17:21:28 Low back pain 215264336 Active 2022 Not Available [facility] 3 17:21:28 Fatigue 43404578 Active 2022 Not Available [facility] 3 17:21:28 Pain of left knee joint 0268156294550 07 Active 2022 Not Available [facility] 3 17:21:28 Bilateral bursitis of hips 1364003929189 9100 Active 2022 Not Available [facility] 3 17:21:27 Chronic thoracic back pain 7372791797825 03 Active 2022 Chao Hester MD [address], [address], [place], [address] , [place] [facility] 3 16:36:56 Chronic back pain 323604048 Active 2022 Venus estrada, [place] [facility] 3 16:46:10 COVID-19 376379578 Active 2023 Chao Hester MD [address], [address], [place], [address] , [place] [facility] 4 15:55:13 Senile osteoporos is 29351023 Active 2023 Venus estrada, [place] [facility] 4 15:38:24 Pain of right breast 3842441949 Active 2023 Bambi Mahoney CMA null, [place] [facility] 4 11:54:02 Skin lesion 74193579 Active 2023 Bambi Mahoney CMA null, [place] [facility] 4 14:06:18 Mastodynia of bilateral breasts 9115297586870 9109 Active 2023 Venus estrada, [place] [facility] 4 11:45:46 Acute sinusitis 55630275 Active 2024 Chao Hester MD [address], [address], [place], [address] , [place] [facility] 5 15:14:53 Cough 25310401 Active 2024 Chao Hester MD [address], [address], [place], [address] , [facility] 5 11:45:57 Obese class II 6912941092150 05 Active 2024 Chao Hester MD [address], [address], [place], [address] , [facility] 5 11:47:14 Dyspnea 712426188 Active 2024 Bambi Mahoney, [employer] BOX TENDER null, [facility] 5 12:11:35 Wheezing 52304722 Active 2024 Chao Hester MD [address], [address], [place], [address] , [facility] 5 14:22:30 Acute bronchitis 61718357 Active 2024 Chao Hester MD [address], [address], [place], [address] , [facility] 5 12:25:31 Problem Notes None recorded. Procedures Surgical History Date Name Laterality Status Provider Name and Address Organization Details Recorded Time 4 Medicare Wellness CPT Code, subsequent completed Gaby Felder RN [facility] [employer] [facility] 11/19/2023 15:14:30 3 Medicare Wellness CPT Code, Initial completed Gaby Felder RN [facility] 06/12/2022 16:12:01 Imaging Results None recorded. Procedure Notes None recorded. Medical Equipment None Reported. Medications Name Sig Start Date Stop Date Status Note LastModified by Organization Details LastModified Time amoxicillin 500 mg capsule TAKE FOUR CAPSULES BY MOUTH ONE HOUR BEFORE APPOINTME NT 10/17 completed Not Available Not Available Not Available naproxen 375 mg tablet TAKE ONE TABLET BY MOUTH TWICE DAILY active Not Available Not Available No t Available azithromyci n 250 mg tablet TAKE 2 TABLETS BY MOUTH ON DAY 1, AND THEN TAKE 1 TABLET BY MOUTH ONCE A DAY ON DAY 2 THROUGH DAY 5 active Not Available Not Available No t Available benzonatate 200 mg capsule Take 1 capsule 3 times a day by oral route. 2024 active Not Available Not Available Not Avai lable meloxicam 15 mg tablet Take 1 tablet by mouth once daily 2024 active Not Available Not Available Not Avai lable promethazin e 6.25 mg-codeine 10 mg/5 mL syrup Take 5 ML EVERY 6 HOURS by oral route PRN for cough 05/07 completed Not Available Not Available Not Available benzonatate 100 mg capsule active Not Available Not Available Not Available Cipro 500 mg tablet Take 1 tablet twice a day by oral route for 10 days. 05/07 completed Not Available Not Available Not Available diclofenac potassium 50 mg tablet Take 1 tablet twice a day by oral route. 12/03 completed Not Available Not Available Not Available ergocalcife rol (vitamin D2) 1,250 mcg (50,000 unit) capsule TAKE 1 CAPSULE BY MOUTH ONCE A WEEK 10/17 completed Not Available Not Available Not Available methylpredn isolone 4 mg tablets in a dose pack TAKE BY MOUTH DIRECTED ON INSIDE OF PACKAGE active Not Available Not Available No t Available albuterol sulfate HFA 90 mcg/actuati on aerosol inhaler Inhale 2 puffs every 4 hours by inhalatio n route. 2024 active Not Available Not Available Not Avai lable Wing 5 mg-325 mg tablet TAKE ONE TABLET BY MOUTH EVERY 6 HOURS NEEDED 12/03 completed Not Available Not Available Not Available amoxicillin 875 mg-potassiu m clavulanate 125 mg tablet TAKE 1 TABLET BY MOUTH EVERY 12 HOURS 04/07 completed Not Available Not Available Not Available Bactrim DS 800 mg-160 mg tablet Take 1 tablet every 12 hours by oral route. 06/12 completed Not Available Not Available Not Available Aleve 01/22 completed Not Available Not Available Not Available ibuprofen 01/22 completed Not Available Not Available Not Available Paxlovid 300 mg (150 mg x 2)-100 mg tablets in a dose pack TAKE 3 TABLETS TOGETHER (TWO 150 MG NIRMATREL VIR TABLETS AND ONE 100 MG RITONAVIR TABLET) BY MOUTH TWICE DAILY FOR 5 DAYS. 05/20 completed Not Available Not Available Not Available Vitals Date Recorded Body height Body mass index (BMI) Body weight Heart rate Body temperature Oxygen saturation Oxygen saturation in Arterial blood by Pulse oximetry Systolic blood pressure Diastolic blood pressure Provider Name and Address Organization Details Last Updated DateTime 5 142.24 cm 39 kg/m2 24987.0 7 g 104 /min 97 [degF] 94 % 94 % 120 mm[Hg] 84 mm[Hg] Shahida Sanders [place] [facility] [employer] [facility] 5 11:39:06 Date Recorded Body height Body mass index (BMI) Body weight Heart rate Body temperature Oxygen saturation Oxygen saturation in Arterial blood by Pulse oximetry Systolic blood pressure Diastolic blood pressure Provider Name and Address Organization Details Last Updated DateTime 4 139.7 cm 31 kg/m2 96561.5 8 g 95 /min 97 [degF] 96 % 96 % 122 mm[Hg] 84 mm[Hg] Shahidatiffanie [facility] [employer] 4 15:09:40 Date Recorded Body height Body mass index (BMI) Body weight Provider Name and Address Organization Details Last Updated DateTime 08/29/2022 139.7 cm 43.2 kg/m2 77398.18 g Kalie Pérez [facility] [employer] 08/29/2022 10:11:53 Date Recorded Body height Body mass index (BMI) Body weight Heart rate Body temperature Oxygen saturation Oxygen saturation in Arterial blood by Pulse oximetry Systolic blood pressure Diastolic blood pressure Provider Name and Address Organization Details Last Updated DateTime 4 139.7 cm 41.4 kg/m2 13838.4 4 g 94 /min 97 [degF] 96 % 96 % 144 mm[Hg] 86 mm[Hg] Skyla Pichardo [facility] [employer] [facility] 4 15:00:55 Date Recorded Body height Body mass index (BMI) Body weight Heart rate Body temperature Oxygen saturation Oxygen saturation in Arterial blood by Pulse oximetry Systolic blood pressure Diastolic blood pressure Provider Name and Address Organization Details Last Updated DateTime 3 139.7 cm 41.4 kg/m2 02731.4 4 g 102 /min 97 [degF] 95 % 95 % 120 mm[Hg] 68 mm[Hg] Shahida Sanders [employer] [facility] [employer] [facility] 3 16:22:36 Social History Question Answer Notes LastModified by Organizat ion Details LastModified Time Tobacco Smoking Status Never Smoker Gaby Felder RN null, [place] [facility] 06/12/2022 16:12:30 Do You Have An Advance Directive? No [email or web address] Information not available 06/12/2022 Are You Blind Or Do You Have Difficulty Seeing? No Information not available 06/12/2022 Are You Deaf Or Do You Have Serious Difficulty Hearing? No [email or web address] Information not available 06/12/2022 What Type Of Diet Are You Following? REGULAR [email or web address] Information not available 06/12/2022 Have There Been Any Changes To Your Family Or Social Situation? No [email or web address] Information not available 06/12/2022 What Is The Fluoride Status Of Your Home? Unknown [email or web address] Information not available 06/12/2022 Do You Use Insect Repellent Routinely? No [email or web address] Information not available 06/12/2022 [facility] [email or web address] Information not available 06/12/2022 Are You Able To Care For Yourself? Yes [email or web address] Information not available 06/12/2022 Are You Blind Or Do Yo Have Difficulty Seeing? No [email or web address] Information not available 06/12/2022 Are You Deaf Or Do You Have Serious Difficulty Hearing? No [email or web address] Information not available 06/12/2022 Live Alone Of With Others? With Others [email or web address] Information not available 11/19/2023 Do You Have A Medical Power Of Vp Strategic Planning? No [email or web address] Information not available 06/12/2022 What Was The Date Of Your Most Recent Tobacco Screening? 11/19/2023 [email or web address] Information not available 11/19/2023 Do You Have Any Pets? No [email or web address] Information not available 06/12/2022 Do You Use Your Seat Belt Or Car Seat Routinely? Yes [email or web address] Information not available 06/12/2022 Do You Have Smoke And Carbon Monoxide Detectors In Your Home? Yes [email or web address] Information not available 06/12/2022 Are You Passively Exposed To Smoke? No [email or web address] Information not available 06/12/2022 Are There Any Smokers In Your House? No [email or web address] Information not available 06/12/2022 Do You Use Sunscreen Routinely? No [email or web address] Information not available 06/12/2022 Have You Recently Traveled Abroad? No [email or web address] Information not available 11/19/2023 Do You Have Difficulty Walking Or Climbing Stairs? Yes Uses A Cane [email or web address] Information not available 11/19/2023 Sex: Unknown Functional Status Question Answer Note LastModified by Organizat ion Details LastModified Time What is your level of alcohol consumption? None [email or web address] Information not available 11/19/2023 Do you have transportation difficulties? No [email or web address] Information not available 06/12/2022 Are you able to walk? YESASSIST [email or web address] Information not available 11/19/2023 Do you have difficulty doing errands alone? No [email or web address] Information not available 06/12/2022 Are you able to care for yourself? Yes [email or web address] Information not available 06/12/2022 Do you have difficulty dressing or bathing? No [email or web address] Information not available 06/12/2022 What is your exercise level? None [email or web address] Information not available 06/12/2022 Mental Status Question Answer Note LastModified by Organization D etails LastModified Time Do you have difficulty concentrating, remembering or making decisions? No [email or web address] Information no t available 06/12/2022 Family History Nothing Reported Notes:Mother 84 from [place] of lung Father 75 from [place] of lung and HTN One sister living hx of CVA Medical History Condition Response NERVE DISEASE N BLINDNESS N RHEUMATIC FEVER N KIDNEY STONES N BLADDER PROBLEMS N MRSA N OTHER # 1 N POLIO N LUNG DISEASE/DISORDER N RADIATION / CHEMOTHERAPY N COPD N Other # 2 N BLOOD DISEASES N EAR OR HEARING PROBLEMS N MUMPS N BOWEL PROBLEMS N DEPRESSION (INCLUDING POST ) N STROKE/TIA N ULCERS N BENIGN PROSTATIC HYPERPLASIA N MEASLES N MYOCARDIAL INFARCTION N OBESITY N GERD/NAUSEA N ANEURYSM N URINARY/BLADDER/KIDNEY PROBLEMS N CORONARY ARTERY DISEASE (CAD) N ADDICTION CONCERNS N ENDOMETRIOSIS N Impotence N USE OF BLOOD THINNERS N SKIN PROBLEMS N GASTROINTESTINAL DISORDER N PERIPHERAL VASCULAR DISEASE N MUSCLE,JOINT OR BONE PROBLEMS N GASTROINTESTINAL BLEEDING N BLOOD CLOTS N ASTHMA N CATARACTS N ERECTILE DYSFUNCTION N VARICOSITIES N GI PROBLEMS N Low Testosterone N INFERTILITY N AIDS/HIV N CHEMOTHERAPY / RADIATION N LIVER DISEASE N MALE HYPOGONADISM N HYPERTENSION Y Deficiency N TOURETTE'S N ANXIETY DISORDER N BLOOD TRANSFUSION N ANEMIA/BLOOD DISORDER N CHRONIC EAR INFECTIONS N BRONCHITIS N TUBERCULOSIS N GLAUCOMA N FOOT PROBLEM N DIVERTICULITIS N SLEEP APNEA N CHICKENPOX N INFECTIOUS DISEASE N HEART ARRHYTHMIA N PROSTATE N INSOMNIA N HIGH CHOLESTEROL / HYPERLIPIDEMIA N HYPERTHYROIDISM N EYE PROBLEMS N EDEMA N CHRONIC PAIN SYNDROME N HYPOTHYROIDISM N CAROTID BLOCKAGE N CONSTIPATION N BACK / NECK PROBLEMS N HAVE YOU BEEN HOSPITALIZED OR SEEN IN [facility] ER IN THE PAST YEAR ? N ATHEROSCLEROSIS N BREAST PROBLEMS N DIALYSIS N ECZEMA N OSTEOPOROSIS N ARTHRITIS N NO SIGNIFICANT PAST MEDICAL HISTORY N APPENDICITIS N DIABETES, TYPE N BAD TEETH N ENT N HEARTBURN / REFLUX N AUTISM SPECTRUM DISORDER (ASD) N HEPATITIS / LIVER DISEASE N GOUT N SLEEP DISORDER N ALZHEIMER'S DISEASE N Brain Problems N HERPES N DEMENTIA N HEADACHES/MIGRAINES N SEIZURES/EPILEPSY N VASCULAR DISEASE N PACEMAKER N Blood Disorder N DIZZINESS N HEART DISEASE/HEART PROBLEMS N KIDNEY DISEASE N MULTIPLE SCLEROSIS N CARDIAC ARRHYTHMIA N CANCER: SPECIFY N ATRIAL FIBRILLATION N Gall Stones N PULMONARY EMBOLISM N AUTOIMMUNE DISEASE N Gynecological HistoryNo gynecological history recorded. Obstetrics History GPAL:G 0 P 0 0 0 0 Immunizations Vaccine Type Date Status Note Provider [facility] e and Address Organization Details Recorded Time Influenza, high-dose, quadrivalent, PF 3 completed Chao Hester MD [address] [facility], [facility] [address], [place], [address], [facility] [employer] 01/22/2023 16:36:17 SARS-COV-2 (COVID-19) vaccine, UNSPECIFIED 1 completed Not Available [facility] 11/23/2022 17:21:28 SARS-COV-2 (COVID-19) vaccine, UNSPECIFIED 1 completed Not Available [facility] 11/23/2022 17:21:28 pneumococcal polysaccharide PPV23 8 completed Not Available [facility] 11/23/2022 17:21:28 Past Encounters Encounter ID Performer Location Encounter Start Date Encounter Closed Date Diagnosis/Indication Diagnosis SNOMED-CT Code Diagnosis ICD10 Code Diagnosis Note [id number] Chao Hester MD [facility] Internal Med [address] [address] 07/12/2020 00:00:00 07/12/2020 12:28:46 [id number] Chao Hester MD [facility] [address] [facility] , [facility] [place] [address] 04/17/2021 00:00:00 04/17/2021 16:34:45 [id number] Chao Hester MD [facility] Internal Med [facility] [address] [address] 10/17/2021 00:00:00 12/21/2021 17:41:19 [id number] Chao Hester MD S[facility] Internal Med [facility] [address] [address] 12/24/2021 00:00:00 12/24/2021 10:44:53 [id number] Chao Hester MD [facility] Internal Med [facility] [address] [address] 06/12/2022 15:58:40 06/12/2022 16:32:31 Adult health examination 669026547 Z00.00 Screening for disorder 826201768 Z13.9 Low back pain 573430220 M54.50 Obese class III 57757341 5 E66.01 Fatigue 54208852 R53.83 Screening for cardiovascular system disease 198194233 Z13.6 Vitamin D deficiency 347 13096 E55.9 [id number] Buddy Han MD S_[facility] [address] [place] [address] 08/29/2022 09:27:16 08/29/2022 11:17:15 Pain of left knee joint 1526196524 45388 M25.915 [id number] Chao Hester MD [facility] Internal Med [facility] [address] [address] 01/22/2023 16:04:25 01/22/2023 16:50:53 Administration of influenza vaccine 68245992 Z23 Osteoarthr itis of knee 759536134 M17.9 Chronic th oracic back pain 1904155143 87705 M54.6 Obese class III 52414227 5 E66.[id number] [facility] Internal Med [address] [address] 05/21/2023 14:52:07 05/21/2023 15:29:59 Osteoarthritis 887882028 M19.90 Obese class III 88795232 5 E66.01 Vitamin D deficiency 347 82368 E55.[id number] [facility] Internal Med [address] [address] 11/19/2023 14:53:37 11/19/2023 15:46:13 Adult health examination 467817278 Z00.00 Screening for disorder 637567521 Z13.9 Osteoporosis 51976062 M8 1.0 Osteoarthr itis of knee 281582662 M17.9 Obese class III 42382736 5 E66.[id number] [facility] Internal Med [address] [address] 04/07/2024 11:25:25 04/07/2024 12:03:00 Chronic back pain 183256854 M54.6 Cough 81348150 R05.9 Obese class II 925705083 1 60161 E66.812 Vitamin D deficiency 347 88627 E55.9 Health Concerns Section Related Observation LastModified by Organization Detai ls LastModified Time None Recorded Concern Status LastModified by Organization Details LastModified Time None Recorded Advance Directives Directive N: Payers Encounter Date Sequence Insurance Name Policy Number Policy Strickland Covered Member ID Strickland Member ID Guarantor Name 08/29/2022 1 [facility] (MEDICARE REPLACEMENT/A DVANTAGE - HMO) [id number] Piedad Tucker [id number] Piedad Tucker 01/22/2023 1 [facility] (MEDICARE REPLACEMENT/A DVANTAGE - HMO) [id number] Piedad Tucker [id number] Piedad Tucker 05/21/2023 1 [facility] (MEDICARE REPLACEMENT/A DVANTAGE - HMO) [id number] Piedad Tucker [id number] Piedad Tucker 11/19/2023 1 [facility] (MEDICARE REPLACEMENT/A DVANTAGE - HMO) [id number] Piedad Tucker [id number] Piedad Tucker 04/07/2024 1 [facility] (MEDICARE REPLACEMENT/A DVANTAGE - HMO) [id number] Piedad Graciela Lucinda [id number] Piedad Graciela Lucinda Notes Date Note Type Note Provider Name and Address Organization Details Recorded Time 08/30/19 text/htm l Patient is a 76-year-old female who is referred by Dr. Hester for evaluation of her left knee pain. She underwent knee replacement of her left knee in 2013 by an orthopedic surgeon [place] and unfortunately after surgery continued to have pain. Her chief complaint was always anteromedial left knee pain. She states that she kept going back but they eventually gave up on trying to help this. Over the past year the pain has worsened quite a bit and she has had to use a cane in the right hand. Her pain is worst when she walks any distance and she rates it at 8/10. At rest it still hurts and she rates it at 5/10. She has had no recent infections and denies fevers or chills. She does have a history of urinary tract infections in the past. She has osteoarthritis in the right knee as well and rates the pain at 7/10 with long walks but no discomfort in the right knee at rest. She notes that she has gained a lot of weight over the last 3 or 4 years. Three or 4 years ago she weighed 125 lb by her statement and today she weighs 186 for a weight gain of 61 lb her BMI currently is 43.2 at height of 4 ft 7 in. She has had some falls and she also has chronic lateral left hip pain. She can not sleep on that side. Her past medical history is unremarkable. She takes no medications except for Aleve occasionally and ibuprofen which she takes 400 mg twice a day on a regular basis. She takes this for her knee on the left. Buddy aHn MD [address] [place] [address], [facility] [address], [place], [address], [facility] [employer] 09/07/2022 09:31:41 01/23/20 23 text/htm l Patient Name: Piedad TuckerDate Of Service: Friday ( 01.22.2023 ): 1945 Age: 77 There has been approximately a 4 lb weight loss since 06/12/2022. This represents approximately a 2.2% change in weight. Weight change attributable to lifestyle changes. Vital Signs:Blood Pressure: Sitting Rt. Arm 120/68Pulse: Sitting 100 /min and RegularRespiratory Rate: 12Height 54.5 in or 1.4 mWeight 178 lb or 80.7 kgBMI 42.1Temperature: 97 F or 36.1 CPulse Oximetry: 95 % at rest on no oxygen Chief Complaint: Addressed in HPI Problems or conditions discussed in the HPI were the only ones reviewed during the encounter.Only social and family history addressed in the HPI were reviewed during this encounter. Attendant(s): NoneConstitutional and Systemic Symptoms:none Medication Reconciliation: from medication list. AnnotationsCT Abdomen and Pelvis: Cholelithiasis without obstruction. Coronary artery calcifications. History of Present Illness #1. Complaining of posterior thoracic pain. With some radiation around anteriorly. Denies any shortness of breath, orthopnea, PND or any other cardiopulmonary symptomatology. Pain is aggravated by bending stooping lifting and twisting. Denies any history of any specific injury. Blood work performed back in May failed disclose any significant anomalies. Had a bone density scan done recently which showed some osteopenia. #2. Hx of DJD stable. No interval complaints of any additional joint pain, swelling or redness. Joints most involved include knees, hips, lumbar spine and thoracic spine. Medications: NSAIDS The DJD does interfere with ADL and ambulation. #3. Hx of obesity. Currently Class 3 Obesity IN > 40. Has tried numerous dietary support and supplements with no benefit. Instructed on the health consequences of the obese status particularly cancer - diabetes and heart disease. Discussed new modalities of weight loss including GLP-1 medications that are used to treat diabetes. Potential candidate for bariatric surgery: No. Wishes to be evaluated by Dietary: No and was offered to be evaluated and instructed by diamond die driller on weight loss diet.Medication List Reviewed and Reconciled 01/22/2023Meloxicam 15 MG (TABLET - ORAL) Once DailyVaccination and Ykraoyaozocp7237-74 Ncxfnotgd0907-56 Covid Nbblcr4599-12 Unjczzghj7710-67 Prevnar 13 Sw4649-28 Zostavax (shingles)Surgical HistoryLeft TKA, Tubal Ligation, Right Ovarian Cyst, D&C, TonsillectomyPreventative Testing Confirmed by Our Lgiasmt4906/18/2022 ALBUMIN 4.2 G/DL N006/18/2022 HAIC 5.5 % OF TOTAL HGB N010/18/2021 DEXA SCAN05/23/2021 MAMMOGRAM COLONOSCOPY (10 YEARS) 09/19/2021ocial HistoryDoes not smokeDrinks sociallyWorks at [facility] HistoryMother 84 from [place] of lungFather 75 from [place] of lung and HTNOne sister living hx of CVAMenarche 12 Menopause 58 A0 Chao Hester MD [address] [facility] [address], [place], [address], [facility] [employer] 01/22/2023 16:42:00 05/21/19 24 text/htm l Patient Name: Piedad Ag Of Service: Friday ( 05.21.2023 ): 1945 Age: 77 There has been approximately a 4.5 lb weight loss since 01/22/2023. This represents approximately a 2.5% change in weight. Weight change attributable to lifestyle changes. Vital Signs:Blood Pressure: Sitting Rt. Arm 122/84Pulse: Sitting 95 /min and RegularRespiratory Rate: 12Height 54.5 in or 1.4 mWeight 173.5 lb or 78.7 kgBMI 41.1Temperature: 97 F or 36.1 CPulse Oximetry: 96 % at rest on no oxygen Chief Complaint: Addressed in HPI Problems or conditions discussed in the HPI were the only ones reviewed during the encounter.Only social and family history addressed in the HPI were reviewed during this encounter. Attendant(s): NoneConstitutional and Systemic Symptoms:none Medication Reconciliation: from medication list. AnnotationsCT Abdomen and Pelvis: Cholelithiasis without obstruction. Coronary artery calcifications. History of Present Illness #1. Hx of DJD stable. No interval complaints of any additional joint pain, swelling or redness. Joints most involved include hands, knees, hips and lumbar spine. Medications: NSAIDS The DJD does not interfere with ADL and ambulation. #2. Hx of obesity. Currently Class 3 Obesity IN > 40. Has tried numerous dietary support and supplements with no benefit. Instructed on the health consequences of the obese status particularly cancer - diabetes and heart disease. Discussed new modalities of weight loss including GLP-1 medications that are used to treat diabetes. Potential candidate for bariatric surgery: No. Wishes to be evaluated by Dietary: No and was offered to be evaluated and instructed by diamond die driller on weight loss diet. Active Medication ListMeloxicam 15 MG (TABLET - ORAL) Once Daily Vaccination and Eupxdccemiaw0677-91 Qsvmugwdn3227-63 Covid Slrbfm8741-71 Uccacvjhq4871-18 Prevnar 13 Sb0351-70 Zostavax (shingles) Surgical Ijhzdha2720-63 Left CXO4141-77 Tubal Zynzktkn8119-30 Right Ovarian Spnp4672-38 D&O8611-62 Tonsillectomy Preventative Aiaxfwu7606/18/2022 ALBUMIN 4.2 G/DL N006/18/2022 HAIC 5.5 % OF TOTAL HGB N010/18/2021 DEXA SCAN05/23/2021 MAMMOGRAM COLONOSCOPY (10 YEARS) 09/19/2021 Social HistoryDoes not smokeDrinks sociallyWorks at [facility] Family HistoryMother 84 from [place] of lungFather 75 from [place] of lung and HTNOne sister living hx of CVAMenarche 12 Menopause 58 A0 Chao Hester MD [address] [facility] [address], [place], [address], [facility] 05/21/2023 15:21:36 11/19/19 24 text/htm l Patient Name: Piedad Davisonte Of Service: Friday ( 11.19.2023 ): 1945 Age: 78 There has been approximately a 4.5 lb weight gain since 05/21/2023. This represents approximately a 2.6% change in weight. Weight change attributable to lifestyle changes. Vital Signs:Blood Pressure: Sitting Rt. Arm 144/86Pulse: Sitting 94 /min and RegularRespiratory Rate: 16Height 54.5 in or 1.4 mWeight 178 lb or 80.7 kgBMI 42.1Temperature: 97 F or 36.1 CPulse Oximetry: 96 % at rest on no oxygen Chief Complaint: Addressed in HPI Problems or conditions discussed in the HPI were the only ones reviewed during the encounter.Only social and family history addressed in the HPI were reviewed during this encounter. A significant, separate E/M service was performed to evaluate the current and new problems. Attendant(s): NoneConstitutional and Systemic Symptoms:none Medication Reconciliation: from medication list. AnnotationsCT Abdomen and Pelvis: Cholelithiasis without obstruction. Coronary artery calcifications. History of Present Illness Reviewed the findings of the preventative health visit. Addressed all areas with the patient, patient's family or caregivers. Preventative examinations and testing immunizations - vaccinations all reviewed and ordered where patient was amenable to the recommendations. Cognitive function was normal. Depression addressed and where necessary medications were adjusted or instituted. End of life and living will briefly discussed with patient and where these can be filled out and legally executed. Other blood and imaging studies were ordered if considered necessary. Other recommendations may be found in the encounter note. #1. Hx of DJD stable. No interval complaints of any additional joint pain, swelling or redness. Joints most involved include knees, hips and lumbar spine. Medications: NSAIDS The DJD does not interfere with ADL and ambulation. #2. Hx of obesity. Currently Class 3 Obesity IN > 40. Has tried numerous dietary support and supplements with no benefit. Instructed on the health consequences of the obese status particularly cancer - diabetes and heart disease. Discussed other modalities of weight loss no . Potential candidate for bariatric surgery: No. Wishes to be evaluated by Dietary: No and was offered to be evaluated and instructed by diamond die driller on weight loss diet. Active Medication ListMeloxicam 15 MG (TABLET - ORAL) Once Daily Vaccination and Tcwmlbrwowss1256-93 Tjoemcjsm4153-70 Covid Vrbhsm4144-80 Rusoorujt1856-17 Prevnar 13 Ra5033-00 Zostavax (shingles) Surgical Gievgvc6680-72 Left OBK3809-66 Tubal Sjdltmah9068-47 Right Ovarian Jofr9236-05 D&J2494-99 Tonsillectomy Preventative Testing( ) 05/26/2023 Albumin 4.2 G/DL N( ) 05/26/2023 HAIC 5.7 % OF TOTAL HGB H(X) 10/18/2021 DEXA Scan 10/19/2023(X) 05/23/2021 Mammogram 05/24/2023(X) 2011 Colonoscopy (10 Years) 09/19/2021 Social HistoryDoes not smokeDrinks sociallyWorks at [facility] Family HistoryMother 84 from [place] of lungFather 75 from [place] of lung and HTNOne sister living hx of CVAMenarche 12 Menopause 58 A0 Chao Hester MD [address] [facility] [address], [place], [address], [place] [facility] [employer] 11/19/2023 15:34:25 04/07/19 25 text/htm l Patient Name: Piedad Ag Of Service: Friday ( 04.07.2024 ): 1945 Age: 78 There has been approximately a 4 lb weight loss since 11/19/2023. This represents approximately a 2.2% change in weight. Weight change attributable to lifestyle changes. Vital Signs:Blood Pressure: Sitting Rt. Arm 124/84Pulse: Sitting 104 /min and RegularRespiratory Rate: 16Height 56 in or 1.4 mWeight 174 lb or 78.9 kgBMI 39.0Temperature: 97 F or 36.1 CPulse Oximetry: 94 % at rest on no oxygen Chief Complaint: Addressed in HPI Problems or conditions discussed in the HPI were the only ones reviewed during the encounter.Only social and family history addressed in the HPI were reviewed during this encounter. Attendant(s): NoneConstitutional and Systemic Symptoms:none Medication Reconciliation: from medication list. History of Present Illness #1. Recent history of a respiratory infection manifested by muscular aches and pains followed by nonproductive cough. This has been going on for several weeks. Did not get checked. 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 Clinically stable till still has a chronic nonproductive cough. Not associated with any shortness of breath, wheezing or any other cardiopulmonary symptoms.: #2. History of chronic back problems and well as knee problems. Status post partial knee replacement. Clinically is doing well otherwise. Is taking the meloxicam 15 mg once daily and doing well.: #3. Hx of obesity. Currently Class 2 Obesity BMI 35-39.99. Has tried numerous dietary support and supplements with no benefit. Instructed on the health consequences of the obese status particularly cancer - diabetes and heart disease. Discussed other modalities of weight loss no . Potential candidate for bariatric surgery: No. Wishes to be evaluated by Dietary: No and was offered to be evaluated and instructed by diamond die driller on weight loss diet. Active Medication ListMeloxicam 15 MG (TABLET - ORAL) Once Daily Vaccination and Immunization(X) 2022- INFLUENZA( ) 2014- ZOSTAVAX (SHINGLES)( ) 2016-09 PREVNAR 13 GC(X) 2017- PNEUMOVAX PREVNAR 20 Needed(X) 2020- COVID Followap Surgical Cpogggw7012-61 Left HJL1888-54 Tubal Afxjwugp0988-73 Right Ovarian Xmdw7948-68 D&H3259-89 Tonsillectomy Preventative Testing( ) 05/26/2023 Albumin 4.2 G/DL N( ) 05/26/2023 HAIC 5.7 % OF TOTAL HGB H(X) 10/18/2021 DEXA Scan 10/19/2023(X) 05/23/2021 Mammogram 05/24/2023(X) 2011 Colonoscopy (10 Years) 09/19/2021 Social HistoryDoes not smokeDrinks sociallyWorks at [facility] Family HistoryMother 84 from [place] of lungFather 75 from [place] of lung and HTNOne sister living hx of CVAMenarche 12 Menopause 58 A0 Chao Hester MD [address] [facility] [facility] [address], [place], [address], [place] [employer] [facility] 04/07/2024 11:54:01 OBGyn Episode No OBEpisode recorded.
--- OUTSIDE RECORDS SUMMARY | 2024-08-02 11:28 | XMS_ITS | Continuity of Care Document ---
Author Organization [facility] Address [address] [place] [address] Phone Care Team Providers Care Unit Nurse Name Role Phone Lemus OD, Alexandr Unavailable Unavailable Procedures Procedure Date Office/outpatient Visit, Est Advance Directives Directive Yes / No Effective Date File Name No Information Encounters Encounter Description Practice Location Reason(s) For Visit Diagnoses Date Provider Providers Copied on Encounter Office/outpat ient Visit, Est [facility], [address], [place], [place], [id number], [place] tel:[phone] [facility] No Information [phone] Lemus OD Alexandr. [address] [facility] , [address], [place], [address], [place]. tel:[phone] Family History Family Member Type Diagnosis Age At Onset No Information Payers Payer name Insurance type Covered alliance party ID Authoriza tion(s) No Information Social History Type Description Quantity Date Captured Comments Sex Female Smoking Status No Information Chief Complaint And Reason For Visit No Information Reason For Referral Reason For Referral No Information History Of Present Illness Encounter Date Complaint History Of Prese nt Illness No Information Functional Status Date Functional Assessmen t No Information Instructions Date Instruction Additional Infor mation No Information Assessments Type Assessment Date No Information Patient Care Teams Name Effective Dates (start - stop) Status Members No Information
--- OUTSIDE RECORDS SUMMARY | 2024-08-02 11:28 | XMS_ITS | Encounter Summary ---
Author Organization [facility] Address [address] 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
--- OUTSIDE RECORDS SUMMARY | 2024-08-02 11:28 | XMS_ITS | Clinical Summary ---
Author Organization 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
--- OUTSIDE RECORDS SUMMARY | 2024-08-02 11:28 | XMS_ITS | CONTINUITY OF CARE DOCUMENT ---
Author Name devyn shepard Address Unknown Organization [facility] Address [address] [place] [address] Phone [phone] Care Team Providers Care Side Seam Tender Name Role Phone Dakota LISA, Nahum Unavailable CHAO PETERS MD Unavailable CHAO PETERS MD Unavailable [phone] INSURANCE PROVIDERS Payer name Policy type / Coverage type [place] red republican ID [place] Medicare [place] [id number] 9 AETNA CHOICE POS II Commercial insurance [place] [id number]
== END 2024-08-02 10:17 | disposition home or self-care (01) ==
PROVIDERS: PCP Internal Medicine; Visit Provider Internal Medicine
DX: N63.11 Unspecified lump in the right breast, upper outer quadrant (principal); N64.4 Mastodynia
CPT/HCPCS: 76642